=== PATIENT | male | born 1950 | race Caucasian/White ===

== ENCOUNTER → 2021-04-10 | Outpatient (CLI) | payer OTHER ==
[~2021-04-10] MED LIST: ASPIR 8181 MG PO; ASPIRIN325 PO; BYSTOLIC10 MG PO; CRESTOR10 MG PO; CRESTOR20 MG PO; EFFIENT10 MG PO; IMDUR 30 MG TAB30 M1 PO; LISINOPRIL-HCT1 EACH; LISINOPRIL10 MG PO; LISINOPRIL20 MG PO; LOPRESSOR25 PO; NITROGLYCERIN0.4 MG SL; PLAVIX 75 MG TA75 M1 PO; SIMVASTATIN40 MG; TOPROL XL25 MG PO
[2021-04-10 12:04] LABS: CHOLESTEROL 135 mg/dL (<200); HDL CHOLESTEROL 60 mg/dL (>40); LDL CHOLESTEROL 45 mg/dL (<100); SERUM ASSESSMENT Clear; TC:HDL 2.3 Ratio (Not establshd); TRIGLYCERIDE 151 mg/dL (<150); VLDL 30 mg/dL (<40)
== END ==
LOC: M.LAB 11:30
PROVIDERS: ATTEND Internal Medicine Cardiovascular Disease
DX: E78.2 Mixed hyperlipidemia (principal)